=== PATIENT | male | born 1975 | race Two or more races ===

== ENCOUNTER 2024-05-30 11:24 | Emergency (ER) | payer SELFPAY ==
[~2024-05-30] VITALS: Ht 180.3 cm; Wt 96.8 kg
--- NOTE | 2024-05-30 11:45 | ED.PDOC ---
Musculoskeletal HPI Comments 48 year old male presents to the ED with chief complaint of left shoulder pain. Patient reports that he was at work around 4 feet high when he accidentally fell and got his left arm stuck in a truss, causing his left shoulder to become dislocated. Patient relays that he is in severe pain and is unable to move his left arm without a lot of pain. Patient denies any LOC, head injury, back injury, dizziness, numbness, or weakness. Chief Complaint: Upper Extremity Time Seen by MD: 11:40 Reviewed Notes: Nurses Notes, Medications, Allergies Allergies: Coded Allergies: NO KNOWN ALLERGIES (Unverified , 05/30/24) Information Source: Patient Mode of Arrival: Ambulatory Location: Left Extremity Location: Shoulder Timing: Hours Prehospital treatment: None Severity: Severe Able to Move Extremity: No Bear Weight: Fully Pain: Severe Mechanism: Spontaneous Circumstances: Work Related, Fall Onset of Symptoms: After Trauma Symptoms: Swelling, Pain DVT Risk Factors: NONE Last Tetanus: Unknown Past Medical History PAST MEDICAL HISTORY: Denies Surgical History: Denies all surgeries Family History Family History: Reviewed,noncontributory to illness Social History Smoker: Non-Smoker Alcohol: Denies ETOH Use Drugs: Denies Drug Use Lives In: Home Constitutional: denies: chills, diaphoresis, fatigue, fever, malaise, sweats, weakness, others EENTM: denies: blurred vision, double vision, ear bleeding, ear discharge, ear drainage, ear pain, ear ringing, eye pain, eye redness, hearing loss, mouth pain, mouth swelling, nasal discharge, nose bleeding, nose congestion, nose pain, photophobia, tearing, throat pain, throat swelling, voice changes, others Respiratory: denies: cough, hemoptysis, orthopnea, SOB at rest, shortness of breath, SOB with excertion, stridor, wheezing, others Cardiovascular: denies: chest pain, dizzy spells, diaphoresis, Dyspnea on exertion, edema, irregular heart beat, left arm pain, lightheadedness, palpitations, PND, syncope, others Gastrointestinal: denies: abdomen distended, abdominal pain, blood streaked bowels, constipated, diarrhea, dysphagia, difficulty swallowing, hematemesis, melena, nausea, poor appetite, poor fluid intake, rectal bleeding, rectal pain, vomiting, others Genitourinary: denies: burning, dysuria, flank pain, frequency, hematuria, incontinence, penile discharge, penile sore, pain, testicle pain, testicle swelling, urgency, others Neurological: denies: dizziness, fainting, headache, left sided numbness, left sided weakness, numbness, paresthesia, pre-existing deficit, right sided numbness, right sided weakness, seizure, speech problems, tingling, tremors, weakness, others Musculoskeletal: reports: others (Left shoulder dislocation and pain); denies: back pain, gout, joint pain, joint swelling, muscle pain, muscle stiffness, neck pain Integumetry: denies: bruises, change in color, change in hair/nails, dryness, laceration, lesions, lumps, rash, wounds, others Allergic/Immunocompromised: denies: Difficulty Healing, Frequent Infections, Hives, Itching, others Hematologic/Lymphatic: denies: anemia, blood clots, easy bleeding, easy bruising, swollen glands, others Endocrine: denies: excessive hunger, excessive sweating, excessive thirst, excessive urination, flushing, intolerance to cold, intolerance to heat, unexplained weight gain, unexplained weight loss, others Psychiatric: denies: anxiety, bipolar disorder, depression, hopeless, panic disorder, schizophrenia, sleepless, suicidal, others All Other Systems: Reviewed and Negative Physical Exam General Appearance: Moderate Distress, Normal HEENT: Normal ENT Inspection, PERRL/EOMI Neck: Full Range of Motion, Non-Tender, Normal, Normal Inspection Respiratory: Chest Non-Tender, Lungs Clear, No Accessory Muscle Use, No Respiratory Distress, Normal Breath Sounds Cardiovascular: No Edema, No JVD, No Murmur, No Gallop, Normal Peripheral P ulses, Regular Rate/Rhythm Breast Exam: Deferred Gastrointestinal: No Organomegaly, Non Tender, No Pulsatile Mass, Normal Bowel Sounds, Soft Genitalia: Deferred Pelvic: Deferred Rectal: Deferred Extremities: Decreased range of motion (Left shoulder), No calf tenderness, Normal capillary refill, Normal range of motion, Non-tender, No pedal edema, Other (Left shoulder deformity) Musculoskeletal : Apperance: Normal Neurologic: Alert, 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 Was a procedure done?: Yes Sedation Sedation?: No Reduction Indication: Dislocation Sedation: Other (Dilaudid 2mg) Post-reduction x-ray show: Reduction, Good Alignment Informed consent obtained: Yes Risks/benefits/alt described: Yes Differential Diagnosis EXT Differential Diagnosis: Fracture, Sprain, Dislocation, Contusion X-Ray, Labs, Meds, VS Vital Signs Date Time Temp Pulse Resp B/P (MAP) Pulse Ox O2 Delivery O2 Flow Rate FiO2 05/30/24 12:25 88 18 145/88 05/30/24 11:58 92 17 145/97 05/30/24 11:55 92 17 96 Room Air 05/30/24 11:55 98.7 92 17 145/97 (113) 96 98.7 05/30/24 11:43 98.1 101 20 134/90 (105) 100 05/30/24 11:43 95 Current Medications Medications (Trade) Dose Ordered Sig/Que Route Start Time Stop Time Status Last Admin Ondansetron HCl (Zofran) 4 mg ONCE ONCE IV 05/30/24 11:45 05/30/24 11:46 DC 05/30/24 11:55 Hydromorphone HCl (Dilaudid Injection) 2 mg ONCE ONCE IV 05/30/24 11:45 05/30/24 11:46 DC 05/30/24 11:58 Lorazepam (Ativan Inj) 1 mg ONCE ONCE IV 05/30/24 11:45 05/30/24 11:46 DC 05/30/24 11:55 Patient alert. Left shoulder deformity. Was given pain medication. Vitals stable. Was able to reduce the dislocation. Was given prescription of Motrin. Explained to the patient. Was told to follow up with his primary care physician. Was told to come back if there is any problem. Time of 1ST Reevaluation: 12:40 Reevaluation 1ST: Unchanged Time of 2ND Reevaluation: 14:08 Reevaluation 2ND: Improved Patient Education/Counseling: Diagnosis, Treatment Family Education/Counseling: No Family Present Departure 1 Departure Time of Disposition: 14:09 Impression: Primary Impression: Shoulder dislocation Qualified Codes: S43.005A - Unspecified dislocation of left shoulder joint, initial encounter Disposition: 01 HOME / SELF CARE / HOMELESS Condition: Good e-Prescriptions Ibuprofen Micronized (MOTRIN TABLET) 600 Mg Tb 600 MG PO TID PRN for 5 Days, #15 TAB *Black box warning-NSAIDS can increase risk of CA & hypertension, GI irritation, ulceration, bleed, perferation. Do not use post cardiac surgery. Use short duration/lowest effective dose. Prov: KYMBERLY JACKSON MD 05/30/24 Discharged With: Self Critical Care Note Critical Care Time?: Yes (45 min-critical care time only) Stability Stability form required: No Heart Score Heart Score: Heart Score Response (Comments) Value History N/A 0 EKG N/A 0 Age N/A 0 Risk Factors N/A 0 Troponin N/A 0 Total 0 I personally scribed for KYMBERLY JACKSON MD ([email or web address]) on 05/30/24 at 11:45. Electronically submitted by Herman Whalen ([email or web address]). I personally scribed for KYMBERLY JACKSON MD ([email or web address]) on 05/30/24 at 13:37. Electronically submitted by Herman Whalen ([email or web address]). KYMBERLY JACKSON MD May 30, 2024 11:45
[2024-05-30 11:55] VITALS: TEMP 98.7; O2SAT 96
[2024-05-30] MEDS: LORazepam 2MG/ML-1ML VIAL IV ONE (11:55)
[2024-05-30] MEDS: ONDANSETRON HCL 4 MG/2 ML VIAL IV ONE (11:55)
[2024-05-30] MEDS: HYDROmorphone HCL 2 MG/ML VL/or syr IV ONE (11:58)
[2024-05-30 12:25] VITALS: BP 145/88; PULSE 88; RESP 18
--- NOTE | 2024-05-30 12:39 | DVH ---
CLINICAL INDICATION: dislocation TECHNIQUE: XY L SHOULDER 1V XRAY Comparison: None FINDINGS/IMPRESSION: Anterior/inferior dislocation of left humeral head
[2024-05-30] MEDS ORDERED: IBU600T PO (14:11)
--- NOTE | 2024-05-31 11:39 | ECG ---
[facility] Test Date: 2024-05-30 Test Time: 11:43:47 Pat Name: LULY AVILEZ Department: ER Room: Gender: M [employer]: ANGE : 1975 Requested By: KYMBERLY JACKSON Order Number: [id number] Reading MD: Measurements Intervals [place] Rate: 95 P: 47 VT: 158 QRS: 17 QRSD: 97 T: 53 QT: 329 QTc: 414 Interpretive Statements Sinus rhythm ST elev, probable normal early repol pattern Please click the below link to view image of tracing.
== END 2024-05-30 14:34 | disposition home or self-care (01) ==
LOC: ER 11:24
DX: S43.085A Other dislocation of left shoulder joint, initial encounter (principal); Z79.899 Other long term (current) drug therapy; W17.89XA Other fall from one level to another, initial encounter; Y93.89 Activity, other specified; Y92.89 Other specified places as the place of occurrence of the external cause; Y99.8 Other external cause status
CPT/HCPCS: 23650; 73020; 93005; 96374; 96375; 99284; J1171; J2060; J2405